=== PATIENT | female | born 1970 | race African-American/Black ===

== ENCOUNTER 2017-11-06 10:01 | Emergency (ER) | payer SELFPAY ==
--- NOTE | 2017-11-06 11:10 | ER Document Report ---
ED Medical Screen (RME) - General Chief Complaint: Cough Stated Complaint: COUGH Time Seen by Provider: 11/06/17 11:06 Notes: pt with cough/fever, sob, left shoulder pain, left knee pain, out of meds TRAVEL OUTSIDE OF THE [place] IN LAST 30 DAYS: No - Related Data Allergies/Adverse Reactions: Penicillins Allergy (Verified 11/06/17 10:05) Past Medical History - Social History Chew tobacco use (# tins/day): No Frequency of alcohol use: None Drug Abuse: None - Past Medical History Cardiac Medical History: Reports: Hx Hypercholesterolemia, Hx Hypertension Pulmonary Medical History: Reports: Hx Asthma, Hx Bronchitis, Hx COPD Neurological Medical History: Reports: Hx Migraine Renal/ Medical History: Denies: Hx Peritoneal Dialysis Psychiatric Medical History: Reports: Hx Bipolar Disorder, Hx Depression, Hx Schizophrenia - Immunizations Hx Diphtheria, Pertussis, Tetanus Vaccination: Yes Physical Exam - Vital signs Vitals: Temp Pulse Resp BP Pulse Ox 99.4 F 90 20 147/93 H 96 11/06/17 10:11/06/17 10:11/06/17 10:11/06/17 10:09 11/06/17 10:09 Course - Vital Signs Vital signs: Temp Pulse Resp BP Pulse Ox 99.4 F 90 20 147/93 H 96 11/06/17 10:09 11/06/17 10:11/06/17 10:09 11/06/17 10:09 11/06/17 10:09
[2017-11-06 11:36] LABS: HEMATOCRIT 45.2 % (36.0-47.0); HEMOGLOBIN 15.5 g/dL (12.0-15.5); HGB HCT DIFFERENCE 1.3; MEAN CORPUSCULAR HEMOGLOBIN 28.1 pg (27.0-33.4); MEAN CORPUSCULAR HGB CONC 34.2 g/dL (32.0-36.0); MEAN CORPUSCULAR VOLUME 82 fl (80-97); RED BLOOD COUNT 5.51 10^6/uL (3.72-5.28); RED CELL DISTRIBUTION WIDTH 14.4 % (11.5-14.0); WHITE BLOOD COUNT 7.7 10^3/uL (4.0-10.5)
[2017-11-06 11:38] LABS: APPEARANCE,URINE SLIGHTLY-CLOUDY; BILIRUBIN,URINE NEGATIVE (NEGATIVE); GLUCOSE, URINE NEGATIVE (NEGATIVE); KETONES,URINE NEGATIVE (NEGATIVE); LEUKOCYTE ESTERASE,URINE SMALL (NEGATIVE); NITRITE,URINE NEGATIVE (NEGATIVE); PROTEIN,URINE NEGATIVE (NEGATIVE); URINE SPECIFIC GRAVITY 1.021; UROBILINOGEN,URINE NEGATIVE mg/dL (<2.0)
--- NOTE | 2017-11-06 11:42 | RADIOLOGY REPORT (SQ) ---
EXAM DESCRIPTION: CHEST PA/LAT COMPLETED DATE/TIME: 11/06/2017 11:32 am REASON FOR STUDY: cough/fever COMPARISON: 05/28/2012 EXAM PARAMETERS: NUMBER OF VIEWS: two views TECHNIQUE: Digital Frontal and Lateral radiographic views of the chest acquired. RADIATION DOSE: NA LIMITATIONS: none FINDINGS: LUNGS AND PLEURA: There is no infiltrate or effusion. There is the appearance of a 15 mm suprahilar nodule on the right. MEDIASTINUM AND HILAR STRUCTURES: No masses or contour abnormalities. HEART AND VASCULAR STRUCTURES: Heart normal size. No evidence for failure. BONES: No acute findings. HARDWARE: None in the chest. OTHER: No other significant finding. IMPRESSION: There appears to be a right pulmonary nodule. TECHNICAL DOCUMENTATION: JOB ID: [id number] [employer]- All Rights Reserved
[2017-11-06 11:45] LABS: ALANINE AMINOTRANSFERASE 33 U/L (9-52); ALBUMIN 4.2 g/dL (3.5-5.0); ALKALINE PHOSPHATASE 83 U/L (38-126); ANION GAP 14 (5-19); ASPARTATE AMINO TRANSFERASE 18 U/L (14-36); BILIRUBIN,DIRECT 0.2 mg/dL (0.0-0.4); BILIRUBIN,TOTAL 0.4 mg/dL (0.2-1.3); BLOOD UREA NITROGEN 8 mg/dL (7-20); CALCIUM 9.6 mg/dL (8.4-10.2); CARBON DIOXIDE 21 mmol/L (22-30); CHLORIDE 104 mmol/L (98-107); CREATININE RESULT 0.79 mg/dL (0.52-1.25); GLUCOSE 90 mg/dL (75-110); SODIUM 138.7 mmol/L (137-145); TOTAL PROTEIN 7.2 g/dL (6.3-8.2)
[2017-11-06 11:54] LABS: ABSOLUTE EOSINOPHILS# (MANUAL) 0.2 10^3/uL (0.0-0.6); BASOPHILS % (MANUAL) 0 % (0-2); EOSINOPHILS % (MANUAL) 3 % (0-6); LYMPHOCYTES % (MANUAL) 19 % (13-45); TOTAL CELLS COUNTED 100
[2017-11-06 11:56] LABS: ANISOCYTOSIS SLIGHT
[2017-11-06] MEDS ORDERED: IBUPROFEN 600 MG TABLET PO ONE (12:23)
[2017-11-06] MEDS ORDERED: PREDNISONE 20 MG TABLET PO ONE (12:23)
[2017-11-06] MEDS ORDERED: IPRATROPIUM/ALBUTEROL 0.5-2.5 MG/3 ML AMPUL NEB ONE (12:23)
--- NOTE | 2017-11-06 12:58 | EKG REPORT ---
SEVERITY:- ABNORMAL ECG - SINUS RHYTHM BIATRIAL ABNORMALITIES : Confirmed by: Stuart Canas MD 06-Nov-2017 12:57:33
--- NOTE | 2017-11-06 13:02 | RADIOLOGY REPORT (SQ) ---
EXAM DESCRIPTION: KNEE LEFT 3 VIEWS COMPLETED DATE/TIME: 11/06/2017 12:50 pm REASON FOR STUDY: pain fall COMPARISON: None. NUMBER OF VIEWS: Three views TECHNIQUE: AP, lateral, and sunrise patella radiographic images acquired of the left knee. LIMITATIONS: None. FINDINGS: MINERALIZATION: Normal. BONES: No acute fracture or dislocation. No worrisome bone lesions. JOINT: No effusion. SOFT TISSUES: No soft tissue swelling. No radio-opaque foreign body. OTHER: No other significant finding. IMPRESSION: NEGATIVE STUDY OF THE LEFT KNEE. NO RADIOGRAPHIC EVIDENCE OF ACUTE INJURY. TECHNICAL DOCUMENTATION: JOB ID: [id number] [employer]- All Rights Reserved
[2017-11-06] MEDS ORDERED: ALBUTEROL SULFATE HFA (90 MCG/PUFF) 8 GM MDI (1 MDI/ER DISP) IH ONE (13:30)
--- NOTE | 2017-11-06 13:30 | ER Document Report ---
ED General - General Chief Complaint: Cough Stated Complaint: COUGH Time Seen by Provider: 11/06/17 11:06 TRAVEL OUTSIDE OF THE [place] IN LAST 30 DAYS: No - HPI Patient complains to provider of: Cough left knee pain chest wall pain Notes: Patient has history of smoking coming in for evaluation of 3 days of cough chest wall pain. Patient states pain is worse whenever she is coughing patient also states that she thinks she dislocated her knee 3 weeks ago still continues to have pain. Patient states slight slowing currently. Patient does states she smokes every day cough nonproductive no recent travel no sick contacts. No recent antibiotics. Upon my evaluation patient is resting comfortably - Related Data Allergies/Adverse Reactions: Penicillins Allergy (Verified 11/06/17 10:05) Past Medical History - Social History Smoking Status: Current Every Day Smoker Chew tobacco use (# tins/day): No Frequency of alcohol use: None Drug Abuse: None Family History: Reviewed & Not Pertinent Patient has suicidal ideation: No Patient has homicidal ideation: No - Past Medical History Cardiac Medical History: Reports: Hx Hypercholesterolemia, Hx Hypertension Pulmonary Medical History: Reports: Hx Asthma, Hx Bronchitis, Hx COPD Neurological Medical History: Reports: Hx Migraine Renal/ Medical History: Denies: Hx Peritoneal Dialysis Psychiatric Medical History: Reports: Hx Bipolar Disorder, Hx Depression, Hx Schizophrenia - Immunizations Hx Diphtheria, Pertussis, Tetanus Vaccination: Yes Review of Systems - Review of Systems Constitutional: No symptoms reported EENT: No symptoms reported Cardiovascular: Chest pain - Chest wall pain Respiratory: Cough, Short of breath, Wheezing Gastrointestinal: No symptoms reported Genitourinary: No symptoms reported Female Genitourinary: No symptoms reported Musculoskeletal: No symptoms reported Skin: No symptoms reported Hematologic/Lymphatic: No symptoms reported Neurological/Psychological: No symptoms reported -: Yes All other systems reviewed and negative Physical Exam - Vital signs Vitals: Temp Pulse Resp BP Pulse Ox 99.4 F 90 20 147/93 H 96 11/06/17 10:09 11/06/17 10:09 11/06/17 10:09 11/06/17 10:09 11/06/17 10:09 Interpretation: Normal - General General appearance: Appears well, Alert - HEENT Head: Normocephalic, Atraumatic Eyes: Normal Pupils: PERRL - Respiratory Respiratory status: No respiratory distress Chest status: Nontender Breath sounds: Wheezing Chest palpation: Normal - Cardiovascular Rhythm: Regular Heart sounds: Normal auscultation Murmur: No - Abdominal Inspection: Normal Distension: No distension Bowel sounds: Normal Tenderness: Nontender Organomegaly: No organomegaly - Back Back: Normal, Nontender - Extremities General upper extremity: Normal inspection, Nontender, Normal color, Normal ROM , Normal temperature General lower extremity: Normal inspection, Tender - Tenderness to palpation of the medial portion of the patient's knee there is no signs of any effusion or significant edema of the left lower leg right leg unaffected, Normal color, Normal ROM, Normal temperature, Normal weight bearing. No: Tarik's sign - Neurological Neuro grossly intact: Yes Cognition: Normal Orientation: AAOx4 Kelechi Coma Scale Eye Opening: Spontaneous [place] Coma Scale Verbal: Oriented Kelechi Coma Scale Motor: Obeys Commands Kelechi Coma Scale Total: 15 Speech: Normal Motor strength normal: LUE, RUE, LLE, RLE Sensory: Normal - Psychological Associated symptoms: Normal affect, Normal mood - Skin Skin Temperature: Warm Skin Moisture: Dry Skin Color: Normal Course - Re-evaluation Re-evalutation: 11/06/17 15:16 X-rays negative for any signs of acute fracture or infection. Laboratory studies also reveal no signs of acute infection or derangement. Patient more likely has underlying bronchitis due to her smoking or viral illness. Patient was encouraged to stop smoking patient will be treated with bronchodilators and steroids patient discharged home. - Vital Signs Vital signs: Temp Pulse Resp BP Pulse Ox 99.4 F 90 20 138/108 H 94 11/06/17 10:09 11/06/17 10:09 11/06/17 10:09 11/06/17 13:33 11/06/17 13:33 - Laboratory Result Diagrams: 11/06/17 11:22 11/06/17 11:22 Laboratory results interpreted by me: 11/06/17 11/06/17 11/06/17 11:22 11:22 11:22 RBC 5.51 H RDW 14.4 H Monocytes % (Manual) 14 H Carbon Dioxide 21 L Urine Blood SMALL H Ur Leukocyte Esterase SMALL H Discharge - Discharge Clinical Impression: Viral URI with cough Left knee pain Qualifiers: Chronicity: acute Qualified Code(s): M25.562 - Pain in left knee Condition: Good Disposition: HOME, SELF-CARE Instructions: Upper Respiratory Illness ([facility]), Viral Syndrome ([facility]) Additional Instructions: Your x-rays today do not show any signs of infectious etiology no signs of fracture no signs of pneumonia. Laboratory studies also show any signs of cardiac ischemia or signs of a heart attack. More likely have underlying viral upper respiratory tract infection/ bronchitis or bronchitis due to smoking. Please stop smoking. We will treat you with bronchodilators and steroids take medication as prescribed he may take Tylenol Motrin for your pain control. Prescriptions: Ibuprofen [Motrin 600 Mg Tablet] 600 mg PO TID #20 tablet Prednisone [Deltasone] 60 mg PO DAILY #5 tablet Forms: Smoking Cessation Education, Return to Work
[2017-11-06 13:36] VITALS: BP 138/108
== END 2017-11-06 14:06 | disposition home or self-care (01) ==
LOC: ER 10:01
DX: J06.9 Acute upper respiratory infection, unspecified (principal); B97.89 Other viral agents as the cause of diseases classified elsewhere; J44.9 Chronic obstructive pulmonary disease, unspecified; M25.562 Pain in left knee; R05 Cough; R07.89 Other chest pain; R06.02 Shortness of breath; F17.200 Nicotine dependence, unspecified, uncomplicated; I10 Essential (primary) hypertension; Z88.0 Allergy status to penicillin
CPT/HCPCS: 94640; 99284; 36415; 85025; 81025; 80053; 81001; 84484; 71020; 73562; 93005; 93010; J7512; J3490; J7620

== ENCOUNTER 2018-09-22 18:53 | Emergency (ER) | payer SELFPAY ==
[2018-09-22 19:03] VITALS: BP 166/79
--- NOTE | 2018-09-22 19:11 | ER Document Report ---
ED Medical Screen (RME) - General Chief Complaint: Hand Pain Stated Complaint: HAND NUMBNESS Time Seen by Provider: 09/22/18 19:09 Mode of Arrival: Ambulatory Information source: Patient TRAVEL OUTSIDE OF THE [place] IN LAST 30 DAYS: No - HPI Patient complains to provider of: hand numbness Onset: Other - pt with bilateral hand and lower arm numbness for the past 2 weeks - Related Data Allergies/Adverse Reactions: Penicillins Allergy (Verified 11/06/17 10:05) Past Medical History - Past Medical History Cardiac Medical History: Reports: Hx Hypercholesterolemia, Hx Hypertension Pulmonary Medical History: Reports: Hx Asthma, Hx Bronchitis, Hx COPD Neurological Medical History: Reports: Hx Migraine Renal/ Medical History: Denies: Hx Peritoneal Dialysis Psychiatric Medical History: Reports: Hx Bipolar Disorder, Hx Depression, Hx Schizophrenia - Immunizations Hx Diphtheria, Pertussis, Tetanus Vaccination: Yes Physical Exam - Vital signs Vitals: Temp Pulse Resp BP Pulse Ox 98.5 F 106 H 17 166/79 H 96 09/22/18 19:02 09/22/18 19:02 09/22/18 19:02 09/22/18 19:02 09/22/18 19:02 Course - Vital Signs Vital signs: Temp Pulse Resp BP Pulse Ox 98.5 F 106 H 17 166/79 H 96 09/22/18 19:02 09/22/18 19:02 09/22/18 19:02 09/22/18 19:02 09/22/18 19:02
[2018-09-22 19:32] LABS: HEMATOCRIT 44.7 % (36.0-47.0); HEMOGLOBIN 15.4 g/dL (12.0-15.5); MEAN CORPUSCULAR HEMOGLOBIN 28.6 pg (27.0-33.4); MEAN CORPUSCULAR HGB CONC 34.4 g/dL (32.0-36.0); MEAN CORPUSCULAR VOLUME 83 fl (80-97); PLATELET COUNT 337 10^3/uL (150-450); RED BLOOD COUNT 5.37 10^6/uL (3.72-5.28); RED CELL DISTRIBUTION WIDTH 14.4 % (11.5-14.0); WHITE BLOOD COUNT 16.5 10^3/uL (4.0-10.5)
[2018-09-22 19:44] LABS: ALANINE AMINOTRANSFERASE 11 U/L (9-52); ALBUMIN 4.3 g/dL (3.5-5.0); ALKALINE PHOSPHATASE 78 U/L (38-126); ANION GAP 14 (5-19); ASPARTATE AMINO TRANSFERASE 23 U/L (14-36); BILIRUBIN,DIRECT 0.2 mg/dL (0.0-0.4); BILIRUBIN,TOTAL 0.7 mg/dL (0.2-1.3); BLOOD UREA NITROGEN 9 mg/dL (7-20); CALCIUM 9.8 mg/dL (8.4-10.2); CARBON DIOXIDE 25 mmol/L (22-30); CHLORIDE 103 mmol/L (98-107); GLUCOSE 132 mg/dL (75-110); POTASSIUM 3.6 mmol/L (3.6-5.0); SODIUM 141.6 mmol/L (137-145); TOTAL PROTEIN 7.7 g/dL (6.3-8.2)
--- NOTE | 2018-09-22 19:49 | RADIOLOGY REPORT (SQ) ---
EXAM DESCRIPTION: CT HEAD WITHOUT COMPLETED DATE/TIME: 09/22/2018 7:35 pm REASON FOR STUDY: hand numbness COMPARISON: None. TECHNIQUE: Axial images acquired through the brain without intravenous contrast. Images reviewed wi th bone, brain and subdural windows. Images stored on PACS. All CT scanners at this facility use dose modulation, iterative reconstruction, and/or weight based d osing when appropriate to reduce radiation dose to as low as reasonably achievable (ALARA). [facility]: Dose Right [facility]: CareDose [facility]: Dose Right [facility]: Teradose 4D [facility]: [employer] RADIATION DOSE: CT Rad equipment meets quality standard of care and radiation dose reduction techniq ues were employed. CTDIvol: 53.2 mGy. DLP: 937 mGy-cm. mGy. LIMITATIONS: None. FINDINGS: VENTRICLES: Normal size and contour. CEREBRUM: No masses. No hemorrhage. No midline shift. No evidence for acute infarction. Normal gra y/white matter differentiation. No areas of low density in the white matter. CEREBELLUM: No masses. No hemorrhage. No alteration of density. No evidence for acute infarction. EXTRAAXIAL SPACES: No fluid collections. No masses. ORBITS AND GLOBE: No intra- or extraconal masses. Normal contour of globe without masses. CALVARIUM: No fracture. PARANASAL SINUSES: No fluid or mucosal thickening. SOFT TISSUES: No mass or hematoma. OTHER: No other significant finding. IMPRESSION: No acute intracranial findings. EVIDENCE OF ACUTE STROKE: NO. COMMENT: Quality ID # [id number]: Final reports with documentation of one or more dose reduction techniques (e.g., Automated exposure control, adjustment of the mA and/or kV according to patient size, use of iterative reconstruction technique) TECHNICAL DOCUMENTATION: JOB ID: [id number] [place]-72 2010 [employer]- All Rights Reserved Reading location - IP/workstation name: [email or web address]
--- NOTE | 2018-09-22 19:55 | RADIOLOGY REPORT (SQ) ---
EXAM DESCRIPTION: CT CERVICAL SPINE WITHOUT COMPLETED DATE/TIME: 09/22/2018 7:35 pm REASON FOR STUDY: hand numbness COMPARISON: None. TECHNIQUE: Axial images acquired through the cervical spine without intravenous contrast. Images re viewed with lung, soft tissue and bone windows. Reconstructed coronal and sagittal MPR images review ed. Images stored on PACS. All CT scanners at this facility use dose modulation, iterative reconstruction, and/or weight based d osing when appropriate to reduce radiation dose to as low as reasonably achievable (ALARA). [facility]: Dose Right [facility]: CareDose [facility]: Dose Right [facility]: Teradose 4D [facility]: [employer] RADIATION DOSE: CT Rad equipment meets quality standard of care and radiation dose reduction techniq ues were employed. CTDIvol: 22.1 mGy. DLP: 427 mGy-cm. mGy. LIMITATIONS: None. FINDINGS: ALIGNMENT: Anatomic. MINERALIZATION: Normal. VERTEBRAL BODIES: No fractures or dislocation. DISCS: Multilevel disc space narrowing with osteophytes. FACETS, LATERAL MASSES, POSTERIOR ELEMENTS: Facet arthropathy. No fractures. No dislocation. No ac [place] findings. HARDWARE: None in the spine. VISUALIZED RIBS: No fractures. LUNG APICES AND SOFT TISSUES: No significant or acute findings. OTHER: No other significant finding. IMPRESSION: CHRONIC DEGENERATIVE CHANGES. NO ACUTE FINDINGS. TECHNICAL DOCUMENTATION: JOB ID: [id number] [place]-72 Quality ID # [id number]: Final reports with documentation of one or more dose reduction techniques (e.g., Au tomated exposure control, adjustment of the mA and/or kV according to patient size, use of iterative reconstruction technique) 2010 [employer]- All Rights Reserved Reading location - IP/workstation name: [email or web address]
[2018-09-22 20:08] LABS: ABSOLUTE LYMPHOCYTES# (MANUAL) 3.3 10^3/uL (0.5-4.7); ABSOLUTE MONOCYTES # (MANUAL) 0.7 10^3/uL (0.1-1.4); ABSOLUTE NEUTROPHILS# (MANUAL) 12.4 10^3/uL (1.7-8.2); BASOPHILS % (MANUAL) 1 % (0-2); EOSINOPHILS % (MANUAL) 0 % (0-6); LYMPHOCYTES % (MANUAL) 18 % (13-45); MONOCYTES % (MANUAL) 4 % (3-13); PLATELET COMMENT ADEQUATE; PLATELET LARGE PRESENT; SEGMENTED NEUTROPHILS % (MAN) 75 % (42-78); TOTAL CELLS COUNTED 100
[2018-09-22] MEDS ORDERED: PREDNISONE 20 MG TABLET PO ONE (20:51)
[2018-09-22] MEDS ORDERED: GABAPENTIN 300 MG CAPSULE PO ONE (20:52)
--- NOTE | 2018-09-22 20:56 | ER Document Report ---
ED General - General Chief Complaint: Hand Pain Stated Complaint: HAND NUMBNESS Time Seen by Provider: 09/22/18 19:09 Mode of Arrival: Ambulatory Notes: Patient is a 48-year-old female without chronic medical problems who presents with complaints of numbness and tingling in both of her hands that is been ongoing for the past 2 weeks. She states that symptoms are worse at night, often prevent her from sleeping. States it feels like her hands are asleep. States it is worse on the ulnar side of the hands. Nothing seems to improve or worsen the symptoms. She states that she had similar symptoms in the remote past, but cannot recall what the diagnosis was. She does not have a primary care doctor. She denies drug or alcohol use. She denies any trauma to the hands or upper extremities. No head or neck trauma. She denies any neck pain. No fever or constitutional symptoms. No chest pain. No history of neurodegenerative conditions. TRAVEL OUTSIDE OF THE [place] IN LAST 30 DAYS: No - Related Data Allergies/Adverse Reactions: Penicillins Allergy (Verified 09/22/18 19:13) Past Medical History - General Information source: Patient - Social History Smoking Status: Current Every Day Smoker Chew tobacco use (# tins/day): No Frequency of alcohol use: None Drug Abuse: None Lives with: Alone Family History: Reviewed & Not Pertinent Patient has suicidal ideation: No Patient has homicidal ideation: No - Past Medical History Cardiac Medical History: Reports: Hx Hypercholesterolemia, Hx Hypertension Pulmonary Medical History: Reports: Hx Asthma, Hx Bronchitis, Hx COPD Neurological Medical History: Reports: Hx Migraine Renal/ Medical History: Denies: Hx Peritoneal Dialysis Psychiatric Medical History: Reports: Hx Bipolar Disorder, Hx Depression, Hx Schizophrenia - Immunizations Hx Diphtheria, Pertussis, Tetanus Vaccination: Yes Review of Systems - Review of Systems Notes: Constitutional: Negative for fever. HENT: Negative for sore throat. Eyes: Negative for visual changes. Cardiovascular: Negative for chest pain. Respiratory: Negative for shortness of breath. Gastrointestinal: Negative for abdominal pain, vomiting or diarrhea. Genitourinary: Negative for dysuria. Musculoskeletal: Negative for back pain. Skin: Negative for rash. Neurological: Negative for headaches, positive for bilateral hand paresthesias 10 point ROS negative except as marked above and in HPI. Physical Exam - Vital signs Vitals: Temp Pulse Resp BP Pulse Ox 98.5 F 106 H 17 166/79 H 96 09/22/18 19:02 09/22/18 19:02 09/22/18 19:02 09/22/18 19:02 09/22/18 19:02 Interpretation: Tachycardic - Resolved at the time of my assessment Notes: PHYSICAL EXAMINATION: GENERAL: Well-appearing, well-nourished and in no acute distress. HEAD: Atraumatic, normocephalic. EYES: Pupils equal round and reactive to light, extraocular movements intact, sclera anicteric, conjunctiva are normal. ENT: nares patent, oropharynx clear without exudates. Moist mucous membranes. NECK: Normal range of motion, supple without lymphadenopathy LUNGS: Breath sounds clear to auscultation bilaterally and equal. No wheezes rales or rhonchi. HEART: Regular rate and rhythm without murmurs ABDOMEN: Soft, nontender, normoactive bowel sounds. No guarding, no rebound. No masses appreciated. EXTREMITIES: Normal range of motion, no pitting or edema. No cyanosis. NEUROLOGICAL: Face symmetric. Tongue protrudes midline. Extraocular motions intact. Pupils are 2 mm and equally reactive. Normal speech, normal gait. 5 out of 5 strength in both the distal and proximal upper and lower extremities bilaterally. Sensation is grossly intact throughout. Finger to nose testing normal. Pronator drift normal. RMU motor and sensory distribution are intact in the bilateral hands. Specifically the patient is able to resist against examination while performing a thumbs up position, okay position, and extending all fingers in a 5 position. No apparent weakness in the setting although when I attempt to asked her perform eap consultant she does have a weak, likely effort dependent eap consultant. PSYCH: Normal mood, normal affect. SKIN: Warm, Dry, normal turgor, no rashes or lesions noted. Course - Re-evaluation Re-evalutation: 09/23/18 01:21 EST Patient presents with paresthesias of the hands bilaterally that is been ongoing for the past 2 weeks, worse in the last several days. Of note, the patient has no neurologic deficit on exam. She does describe this as a sensation of paresthesias as opposed to true sensory loss. Although the patient has weak eap consultant strength, when I perform specific motor testing as documented she does not have any weakness of any kind. She does complain of feeling that sensation is most dulled along the ulnar distribution of her hands bilaterally but does still feel when I touch the area. She has no swelling over the medial epicondyle region on either elbow. Symptoms appear most consistent with an ulnar nerve entrapment or inflammation although it is quite unusual the patient is a having symptoms bilaterally. A CT of the head and cervical spine obtained in triage are noted to be unremarkable. Clinical history is not at all consistent with an acute stroke given the bilateral nature of her symptoms. A cervical spine issue would certainly be on the differential although the CT of the cervical spine is clear. I do not see an indication for an emergent MRI given the absence of any true neural deficits but I have advised the patient that she should follow-up with our local hand specialist and then MRI of the cervical spine may be considered at that time. I also started the patient on prednisone and gabapentin to see if this helps reduce some of her symptoms. At this time will discharge with return precautions and follow-up recommendations. Verbal discharge instructions given a the bedside and opportunity for questions given. Medication warnings reviewed. Patient is in agreement with this plan and has verbalized understanding of return precautions and the need for primary care follow-up in the next 24-72 hours. - Vital Signs Vital signs: Temp Pulse Resp BP Pulse Ox 98.5 F 106 H 17 166/79 H 96 09/22/18 19:02 09/22/18 19:02 09/22/18 19:02 09/22/18 19:02 09/22/18 19:02 - Laboratory Result Diagrams: 09/22/18 19:16 09/22/18 19:16 Laboratory results interpreted by me: 09/22/18 09/22/18 19:16 19:16 WBC 16.5 H RBC 5.37 H RDW 14.4 H Abs Neuts (Manual) 12.4 H Glucose 132 H - Diagnostic Test Radiology reviewed: Image reviewed, Reports reviewed Radiology results interpreted by me: 09/23/18 01:[address] head: No acute intracranial bleed or mass Discharge - Discharge Clinical Impression: Bilateral hand numbness Ulnar nerve compression Qualifiers: Laterality: unspecified laterality Qualified Code(s): G56.20 - Lesion of ulnar nerve, unspecified upper limb Condition: Good Disposition: HOME, SELF-CARE Additional Instructions: Your seen today for 2 weeks of numbness in both of your hands. This appears to be likely related to your ulnar nerve given the distribution of your sensory loss. The CT scan of your head and neck are normal today but I do believe that you should have MRI of your cervical spine as an outpatient to further exclude any abnormality of the cord. You need to see the hand specialist listed in the paperwork at your earliest ability. Your being started on a brief course of steroids and gabapentin which will hopefully improve your symptoms. You need to return to emergency department immediately if you have difficulty speaking, difficulty swallowing, weakness, worsening of your numbness, or any other symptoms that are worrisome to you. Prescriptions: Gabapentin 300 mg PO TID #90 capsule Prednisone [Deltasone 20 mg Tablet] 3 tab PO DAILY 5 Days tablet Forms: Return to Work Referrals: EMIGDIO CABRAL DO [ACTIVE STAFF] - Follow up in 3-5 days
== END 2018-09-22 21:14 | disposition home or self-care (01) ==
LOC: ER 18:53
DX: G56.20 Lesion of ulnar nerve, unspecified upper limb (principal); R20.2 Paresthesia of skin; R20.0 Anesthesia of skin; I10 Essential (primary) hypertension; J44.9 Chronic obstructive pulmonary disease, unspecified; F17.200 Nicotine dependence, unspecified, uncomplicated; Z88.0 Allergy status to penicillin
CPT/HCPCS: 99284; 36415; 85025; 80053; 70450; 72125; J7512

== ENCOUNTER 2018-12-14 12:36 | Emergency (ER) | payer SELFPAY ==
[2018-12-14 12:48] VITALS: BP 138/74
[2018-12-14] MEDS ORDERED: KETOROLAC TROMETHAMINE 60 MG/2 ML SDV IM ONE (13:05)
[2018-12-14] MEDS ORDERED: HYDROMORPHONE HCL INJ/PF 2 MG/ML AMPULE IM ONE (13:05)
[2018-12-14] MEDS ORDERED: LIDOCAINE 5% (700 MG) TRANSDERMAL ADH..PATCH TP ONE (13:06)
--- NOTE | 2018-12-14 13:10 | ER Document Report ---
HPI - HPI Patient complains to provider of: Low back pain Time Seen by Provider: 12/14/18 12:49 Onset/Duration: Worse Quality of pain: Sharp Pain Level: 3 Context: Patient presents complaining of a flareup of her sciatica. Patient states pain started 4 days ago and worsened yesterday. Typical of flareups that she has had in the past. Patient denies any new injury. Patient denies any fever, urinary retention or incontinence. Patient does state pain radiates to bilateral legs to the level of her ankles. Associated Symptoms: Other - Low back pain. denies: Fever, Headache Exacerbated by: Standing, Movement, Walking Relieved by: Denies Similar symptoms previously: Yes Recently seen / treated by doctor: No - ROS ROS below otherwise negative: Yes Systems Reviewed and Negative: Yes All other systems reviewed and negative - CONSTITUTIONAL Constitutional: DENIES: Fever, Chills - NEURO Neurology: DENIES: Headache, Weakness - RESPIRATORY Respiratory: DENIES: Trouble Breathing, Coughing - GASTROINTESTINAL Gastrointestinal: DENIES: Patient vomiting - URINARY Urinary: DENIES: Dysuria, Urgency, Frequency - REPRODUCTIVE Reproductive: DENIES: : - MUSCULOSKELETAL Musculoskeletal: REPORTS: Extremity pain, Back Pain - DERM Skin Color: Normal Skin Problems: None Past Medical History - General Information source: Patient - Social History Smoking Status: Current Every Day Smoker Chew tobacco use (# tins/day): No Frequency of alcohol use: None Drug Abuse: None Occupation: Foodservice Family History: Reviewed & Not Pertinent Patient has suicidal ideation: No Patient has homicidal ideation: No - Past Medical History Cardiac Medical History: Reports: Hx Hypercholesterolemia, Hx Hypertension Pulmonary Medical History: Reports: Hx Asthma, Hx Bronchitis, Hx COPD Neurological Medical History: Reports: Hx Migraine Renal/ Medical History: Denies: Hx Peritoneal Dialysis Psychiatric Medical History: Reports: Hx Attention Deficit Hyperactivity Disorder, Hx Bipolar Disorder, Hx Depression, Hx Schizophrenia Surgical Hx: Negative - Immunizations Hx Diphtheria, Pertussis, Tetanus Vaccination: Yes Vertical Provider Document - CONSTITUTIONAL Agree With Documented VS: Yes Exam Limitations: No Limitations General Appearance: WD/WN, Mild Distress Notes: PHYSICAL EXAMINATION: GENERAL: Well-appearing, well-nourished and in no acute distress. HEAD: Atraumatic, normocephalic. EYES: sclera clear, anicteric, conjunctiva are normal. ENT: nares patent, Moist mucous membranes. NECK: Normal range of motion, supple no lymphadenopathy LUNGS: respirations unlabored HEART: Regular rate and rhythm without murmurs EXTREMITIES: Normal range of motion, no pitting or edema. No cyanosis. Gait normal, pt ambulates without difficulty BACK: Lower lumbar midline tenderness, no deformities or step-offs. No CVA tenderness. NEUROLOGICAL: Cranial nerves grossly intact. Normal speech, normal gait. No saddle anesthesia. PSYCH: Normal mood, normal affect. SKIN: Warm, Dry, normal turgor, no rashes or lesions noted. - INFECTION CONTROL TRAVEL OUTSIDE OF THE [place] IN LAST 30 DAYS: No Course - Re-evaluation Re-evalutation: 12/14/18 13:08 The patient presents with low back pain without signs of spinal cord compression, cauda equina syndrome, infection, aneurysm, or other serious etiology. The patient is neurologically intact. Given the extremely risk of these diagnoses further testing and evaluation for these possibilities does not appear to be indicated at this time. Patient has been instructed to return if the symptoms worsen or change in any way. - Vital Signs Vital signs: Temp Pulse Resp BP Pulse Ox 97.6 F 83 16 138/74 H 98 12/14/18 12:47 12/14/18 12:47 12/14/18 12:47 12/14/18 12:47 12/14/18 12:47 Discharge - Discharge Clinical Impression: Sciatica Qualifiers: Laterality: unspecified laterality Qualified Code(s): M54.30 - Sciatica, unspecified side Condition: Stable Disposition: HOME, SELF-CARE Instructions: Ice Packs ([facility]), Low Back Pain ([facility]), Oral Narcotic Medication ([facility]), Sciatica ([facility]) Additional Instructions: Return immediately for any new or worsening symptoms Followup with your primary care provider, call tomorrow to make a followup appointment Prescriptions: Oxycodone HCl/Acetaminophen [Percocet 5-325 mg Tablet] 1 tab PO ASDIR PRN #15 tablet PRN Reason: Prednisone [Deltasone 20 mg Tablet] 3 tab PO DAILY 5 Days tablet Forms: Smoking Cessation Education, Return to Work Referrals: [facility] [Provider Group] - Follow up as needed [facility] [Provider Group] - Follow up as needed
== END 2018-12-14 13:42 | disposition home or self-care (01) ==
LOC: ER 12:36
DX: M54.30 Sciatica, unspecified side (principal); M54.5 Low back pain; F17.200 Nicotine dependence, unspecified, uncomplicated; I10 Essential (primary) hypertension; J45.909 Unspecified asthma, uncomplicated
CPT/HCPCS: 99283; 96372; J1885; J1170